=== PATIENT | female | born 1975 | race Caucasian/White ===

== ENCOUNTER 2016-08-03 11:10 | Emergency (ER) | payer OTHER ==
[~2016-08-03] VITALS: Ht 177.8 cm; Wt 104.3 kg
[~2016-08-03 11:10] MED LIST: ASPI81TA2 PO; AZIT250T6 PO; BENZ100C PO; BUPR150T6 PO; CARV3.122 PO; HYDR-971 PO; LEVO500T38 PO; LOSA1TAB17 PO; METF10002 PO; NO MEDICATIONS; PANT20TA2 PO; PHEN-318 PO; PRED20TA PO
[2016-08-03 11:41] LABS: BASO # 0.1 x10^3/uL (0.0-0.2); BASO % 1 % (0-3); EOS # 0.2 x10^3/uL (0.0-0.7); EOS % 2 % (0-3); HEMATOCRIT 41.4 % (36.0-47.0); HEMOGLOBIN 13.7 g/dL (12.0-15.5); LYMPH # 3.2 x10^3/uL (1.0-4.8); LYMPH % 25 % (24-48); MEAN CORPUSCULAR HEMOGLOBIN 28 pg (25-35); MEAN CORPUSCULAR HGB CONC 33 g/dL (31-37); MEAN CORPUSCULAR VOLUME 85 fL (79-100); MONO # 0.9 x10^3/uL (0.0-1.1); MONO % 7 % (0-9); NEUT # 8.5 x10^3uL (1.8-7.7); NEUT % 65 % (31-73); PLATELET COUNT 458 x10^3/uL (140-400); RED BLOOD COUNT 4.86 x10^6/uL (3.50-5.40); RED CELL DISTRIBUTION WIDTH 14.2 % (11.5-14.5)
[2016-08-03] MEDS: IV NORMAL SALINE 1,000ML 1,000 ML IV ONE (11:43)
[2016-08-03] MEDS: FENTANYL PF 250 MCG/5 ML VIAL. IV ONE (11:43)
[2016-08-03] MEDS: ONDANSETRON PF 4 MG/2 ML VIAL. IV ONE (11:43)
[2016-08-03 11:58] LABS: ALBUMIN 3.8 g/dL (3.4-5.0); ALBUMIN/GLOBULIN RATIO 0.9 (1.0-1.7); CALCIUM 9.2 mg/dL (8.5-10.1); GFR 61.1; POTASSIUM 3.8 mmol/L (3.5-5.1); TOTAL BILIRUBIN 0.3 mg/dL (0.2-1.0); TOTAL PROTEIN 8.1 g/dL (6.4-8.2)
[2016-08-03 12:11] LABS: BILIRUBIN,URINE NEG (NEG); CLARITY,URINE HAZY; COLOR,URINE YELLOW; GLUCOSE,URINE NEG (NEG)
[2016-08-03 12:12] LABS: NITRITE,URINE NEG (NEG); UROBILINOGEN,URINE 0.2 mg/dL (0.2 mg/dL)
[2016-08-03] MEDS: MORPHINE SULFATE 4 MG/ML DISP.SYRIN. IV ONE ×2 (12:25→13:28)
[2016-08-03] MEDS: IOHEXOL 300 MG/ML 75 ML VIAL. IV ONE (12:51)
--- NOTE | 2016-08-03 13:02 | RAD ---
EXAM: Abdomen and pelvis CT with intravenous contrast. HISTORY: Pain. TECHNIQUE: Computed tomographic images of the abdomen and pelvis were obtained following the administration of 75 cc of Omnipaque 300 intravenous contrast. Multiplanar reformatting was performed. COMPARISON: 01/17/2014. FINDINGS: Evaluation of the lower thorax demonstrates no infiltrate, effusion or pneumothorax. The heart is normal in size. There is hepatic steatosis and hepatomegaly. The gallbladder is surgically absent. There is common bile duct dilatation likely due to reservoir effect status post cholecystectomy. The pancreas, spleen and adrenal glands are unremarkable. There is left renal cortical scarring. No solid or cystic renal lesion is seen. The appendix is surgically absent. No abnormally thickened or dilated loop of bowel is seen. No pathologically enlarged lymph node is seen. There is a small fat-containing supraumbilical hernia. There is no suspicious osseous lesion. IMPRESSION: 1. No acute abdominal or pelvic finding. 2. Hepatic steatosis and hepatomegaly. 3. Left renal cortical scarring. 4. Small fat-containing subumbilical hernia. PQRS Compliance Statement: One or more of the following individualized dose reduction techniques were utilized for this examination: 1. Automated exposure control 2. Adjustment of the mA and/or kV according to patient size 3. Use of iterative reconstruction technique
[2016-08-03 13:30] VITALS: BP 154/89
--- NOTE | 2016-08-03 15:47 | ED.ADGEN ---
Past History Past Medical History: Diabetes, Hypertension Past Surgical History: Appendectomy, Cholecystectomy, Hysterectomy Alcohol Use: None Drug Use: None Adult General Chief Complaint Chief Complaint Generalized abdominal pain HPI HPI Patient is a 41-year-old female with past surgical history of appendectomy, cholecystectomy and hysterectomy who presents with diffuse generalized abdominal pain since yesterday, worse today. Pain is nonradiating, non- migratory and constant in intensity. Patient also reports constipation with small bowel movement today and urge defecate. Reports decreased gas output. Nausea without vomiting. No fever chills, sweats. No hematuria dysuria or low back pain. No other acute symptoms. Review of Systems Review of Systems Review symptoms as per history of present illness. All other review symptoms are negative. Current Medications Current Medications Current Medications Medications (Trade) Dose Ordered Sig/Jefferson Start Time Stop Time Status Last Admin Dose Admin Fentanyl Citrate (Fentanyl 5ml Vial) 100 mcg 1X ONCE 08/03/16 11:50 08/03/16 11:51 DC 08/03/16 11:43 100 MCG Iohexol (Omnipaque 300 Mg/ml) 75 ml 1X ONCE 08/03/16 12:55 08/03/16 12:56 DC 08/03/16 12:51 75 ML Morphine Sulfate (Morphine 4mg Syringe) 4 mg 1X ONCE 08/03/16 13:30 08/03/16 13:31 DC 08/03/16 13:28 4 MG Ondansetron HCl (Zofran) 4 mg 1X ONCE 08/03/16 11:50 08/03/16 11:51 DC 08/03/16 11:43 4 MG Sodium Chloride (Iv Sodium Chloride 0.9% 1,000ml) 1,000 ml @ 1,000 mls/hr 1X ONCE 08/03/16 11:50 08/03/16 12:49 DC 08/03/16 11:43 1,000 MLS/HR Allergies Allergies Allergies Coded Allergies Type Severity Reaction Last Updated Verified No Known Drug Allergies 08/03/16 No Physical Exam Physical Exam Constitutional: Well developed, well nourished, no acute distress, non-toxic appearance. [] HENT: Normocephalic, atraumatic, bilateral external ears normal, oropharynx moist, no oral exudates, nose normal. [] Eyes: PERRLA, EOMI, conjunctiva normal, no discharge. [] Neck: Normal range of motion, no tenderness, supple, no stridor. [] Cardiovascular:Heart rate regular rhythm, no murmur [] Lungs & Thorax: Bilateral breath sounds clear to auscultation [] Abdomen: Bowel sounds normal, soft, use abdominal pain, no tenderness appreciated. Obesity compromising exam. Skin: Warm, dry, no erythema, no rash. [] Back: No tenderness, no CVA tenderness. [] Extremities: No tenderness, no cyanosis, no clubbing, ROM intact, no edema. [] Neurologic: Alert and oriented X 3, normal motor function, normal sensory function, no focal deficits noted. [] Psychologic: Affect normal, judgement normal, mood normal. [] Current Patient Data Vital Signs Vital Signs Date Time Temp Pulse Resp B/P Pulse Ox O2 Delivery O2 Flow Rate FiO2 08/03/16 13:30 76 18 154/89 98 Room Air 08/03/16 11:10 98.2 Lab Results Laboratory Tests Test 08/03/16 11:26 08/03/16 11:36 White Blood Count 13.0x10^3/uL (4.0-11.0) H Red Blood Count 4.86x10^6/uL (3.50-5.40) Hemoglobin 13.7g/dL (12.0-15.5) Hematocrit 41.4% (36.0-47.0) Mean Corpuscular Volume 85fL (79-100) Mean Corpuscular Hemoglobin 28pg (25-35) Mean Corpuscular Hemoglobin Concent 33g/dL (31-37) Red Cell Distribution Width 14.2% (11.5-14.5) Platelet Count 458x10^3/uL (140-400) H Neutrophils (%) (Auto) 65% (31-73) Lymphocytes (%) (Auto) 25% (24-48) Monocytes (%) (Auto) 7% (0-9) Eosinophils (%) (Auto) 2% (0-3) Basophils (%) (Auto) 1% (0-3) Neutrophils # (Auto) 8.5x10^3uL (1.8-7.7) H Lymphocytes # (Auto) 3.2x10^3/uL (1.0-4.8) Monocytes # (Auto) 0.9x10^3/uL (0.0-1.1) Eosinophils # (Auto) 0.2x10^3/uL (0.0-0.7) Basophils # (Auto) 0.1x10^3/uL (0.0-0.2) Sodium Level 142mmol/L (136-145) Potassium Level 3.8mmol/L (3.5-5.1) Chloride Level 101mmol/L (98-107) Carbon Dioxide Level 33mmol/L (21-32) H Anion Gap 8 (6-14) Blood Urea Nitrogen 14mg/dL (7-20) Creatinine 1.0mg/dL (0.6-1.0) Estimated GFR (Cockcroft-Gault) 61.1 BUN/Creatinine Ratio 14 (6-20) Glucose Level 158mg/dL (70-99) H Calcium Level 9.2mg/dL (8.5-10.1) Total Bilirubin 0.3mg/dL (0.2-1.0) Aspartate Amino Transferase (AST) 15U/L (15-37) Alanine Aminotransferase (ALT) 36U/L (14-59) Alkaline Phosphatase 126U/L (46-116) H Total Protein 8.1g/dL (6.4-8.2) Albumin 3.8g/dL (3.4-5.0) Albumin/Globulin Ratio 0.9 (1.0-1.7) L Lipase 183U/L (73-393) Urine Collection Type Unknown Urine Color Yellow Urine Clarity Hazy Urine pH 6.0 Urine Specific [place] 1.025 Urine Protein Trace (NEG-TRACE) Urine Glucose (UA) Negmg/dL (NEG) Urine Ketones (Stick) Negmg/dL (NEG) Urine Blood Trace (NEG) Urine Nitrite Neg (NEG) Urine Reducing Substances % (NEG) Urine Bilirubin Neg (NEG) Urine Urobilinogen Dipstick 0.2mg/dL (0.2 mg/dL) Urine Leukocyte Esterase Neg (NEG) EKG EKG [] Radiology/Procedures Radiology/Procedures CT abdomen pelvis: No obvious intra-abdominal process per radiology report.[] Impressions: Abdominal pain, etiology unclear. Course & Med Decision Making Course & Med Decision Making Pertinent Labs and Imaging studies reviewed. (See chart for details) [Lab work, CT abdomen pelvis, reassuring. Pain addressed improved while in the emergency department. Etiology unclear. Recommend supportive care, watchful waiting and PCP follow-up. Return precautions reviewed.] Final Impression Final Impression [#1 abdominal pain] Problems: Dragon Disclaimer Tanner Disclaimer This electronic medical record was generated, in whole or in part, using a voice recognition dictation system. FATOU BOYKIN DO Aug 03, 2016 15:47
== END 2016-08-03 13:30 | disposition home or self-care (01) ==
LOC: ER 11:10
DX: R10.84 Generalized abdominal pain (principal); K59.00 Constipation, unspecified; E11.9 Type 2 diabetes mellitus without complications; I10 Essential (primary) hypertension; Z90.49 Acquired absence of other specified parts of digestive tract; Z90.710 Acquired absence of both cervix and uterus
CPT/HCPCS: 36415; 74177; 80053; 81003; 83690; 85027; 96361; 96374; 96375; 96376; 99285; J2270; J2405; J3010; Q9967; J7030

== ENCOUNTER 2017-03-15 16:34 | Inpatient (IN) | payer OTHER ==
[~2017-03-15] VITALS: Ht 175.3 cm; Wt 116.1 kg
[~2017-03-15 16:34] MED LIST changes: +ASPI-630 PO; -ASPI81TA2 PO; +BUPR-192 PO; -BUPR150T6 PO; -LEVO500T38 PO; +LEVO500T59 PO; -LOSA1TAB17 PO; +LOSA1TAB22 PO; -PANT20TA2 PO; +PANT20TA58 PO
[2017-03-15] MEDS ORDERED: NITROGLYCERIN SUBLINGUAL 0.4 MG BOTTLE OF 25. SL PRN ×2 (17:00→19:00)
[2017-03-15] MEDS ORDERED: ASPIRIN 81 MG TAB.CHEW PO ONE (17:15)
--- NOTE | 2017-03-15 17:20 | RAD ---
Portable AP upright view CXR: Clinical indications: Chest pain today.. Comparison: February 27, 2016. Findings: No acute lung infiltrate or pleural effusion or pulmonary edema or lung mass or pneumothorax is seen. The heart size, pulmonary vasculature, mediastinum and both aleja are unremarkable. Impression: No acute radiographic abnormality is seen.
--- NOTE | 2017-03-15 17:21 | EKG ---
[address] [address] Test Date: 2017-03-15 Test Time: 16:56:32 Pat Name: MARIJA GONZALES Department: Room: Gender: F Sole Leveler Machine: : 1975 Requested By: BRETT CLARK Order Number: [id number] Reading MD: Measurements Intervals [place] Rate: 82 P: 15 [place]: 154 QRS: 8 QRSD: 92 T: 26 QT: 378 QTc: 445 Interpretive Statements SINUS RHYTHM NO SPECIFIC ECG ABNORMALITIES RI6.01 No previous ECG available for comparison
[2017-03-15 17:50] LABS: BASO # 0.1 x10^3/uL (0.0-0.2); BASO % 1 % (0-3); EOS # 0.2 x10^3/uL (0.0-0.7); EOS % 2 % (0-3); HEMATOCRIT 38.4 % (36.0-47.0); HEMOGLOBIN 12.9 g/dL (12.0-15.5); LYMPH # 4.3 x10^3/uL (1.0-4.8); LYMPH % 33 % (24-48); MEAN CORPUSCULAR HEMOGLOBIN 29 pg (25-35); MEAN CORPUSCULAR HGB CONC 34 g/dL (31-37); MEAN CORPUSCULAR VOLUME 85 fL (79-100); MONO # 0.8 x10^3/uL (0.0-1.1); MONO % 6 % (0-9); NEUT # 7.5 x10^3uL (1.8-7.7); NEUT % 58 % (31-73); PLATELET COUNT 405 x10^3/uL (140-400); RED BLOOD COUNT 4.53 x10^6/uL (3.50-5.40); RED CELL DISTRIBUTION WIDTH 13.3 % (11.5-14.5)
[2017-03-15 17:59] LABS: ALBUMIN 3.9 g/dL (3.4-5.0); CREATININE 1.1 mg/dL (0.6-1.0); GFR 54.7; POTASSIUM 3.3 mmol/L (3.5-5.1); TOTAL BILIRUBIN 0.3 mg/dL (0.2-1.0)
[2017-03-15 18:57] LABS: BACTERIA,URINE 0 /HPF (0-FEW); BILIRUBIN,URINE NEG (NEG); CLARITY,URINE CLEAR; COLOR,URINE YELLOW; GLUCOSE,URINE NEG (NEG); NITRITE,URINE NEG (NEG); RBC,URINE RARE /HPF (0-2); SQUAMOUS EPITHELIAL CELL,UR MOD /LPF; UROBILINOGEN,URINE 0.2 mg/dL (0.2 mg/dL); WBC,URINE OCC /HPF (0-4)
[2017-03-15] MEDS ORDERED: ONDANSETRON PF 4 MG/2 ML VIAL. IV PRN (19:00)
[2017-03-15] MEDS ORDERED: ACETAMINOPHEN 325 MG TABLET PO PRN (19:00)
--- NOTE | 2017-03-15 19:26 | PHYS DOC ---
General Chief Complaint: Palpitations Stated Complaint: CHEST PALPITATIONS Time Seen by MD: 16:54 Source: patient, old records Exam Limitations: no limitations Problems: History of Present Illness Initial Comments Patient is a 41-year-old female who comes in the ED complaining of chest discomfort and palpitations. Patient's spouse worse in the emergency department patient is well known to the unit. She has prior history of hypertension and hyperlipidemia as well as intermittent anxiety. The patient and her spouse are moving residences, admittedly she's had a great deal more stress recently. Today while unloading boxes approximately one hour prior to ED arrival the patient experienced sudden onset anterior chest tightness with palpitations. Symptoms described as moderate no exacerbating or relieving factors known. No nausea diaphoresis shortness of breath arm or neck symptoms, patient is a daily smoker but denies recent increase in cough fever chills sweats or body aches. On ED arrival symptoms have relieved somewhat, ED vitals: 97.8, 88, 16, 144/90, 97% room air. Patient was admitted to this facility in October 2015 with similar symptoms. At that time she ruled out for acute coronary syndrome and was to follow-up as an outpatient for further testing. Timing/Duration: 1 hour Severity: moderate Modifying Factors: improves with other Associated Symptoms: chest pain, other Allergies: Coded Allergies: No Known Drug Allergies (Unverified , 08/03/16) Past Medical History Medical History: other (hypertension, diabetes, anxiety) Surgical History: appendectomy, cholecystectomy, other Psychosocial History: anxiety Family History Significant Family History: heart disease (patient's mom had an MN at 67 years old) Social History Smoker: cigarettes Alcohol: none Drugs: none Review of Systems Constitutional: denies chills, denies diaphoresis, denies fever, denies malaise Respiratory: denies cough, denies shortness of breath, denies wheezing Cardiovascular: see HPI Gastrointestinal: denies abdominal pain, denies diarrhea, denies nausea, denies vomiting Genitourinary: denies frequency, denies hematuria Musculoskeletal: denies back pain, denies joint swelling, denies neck pain Psychiatric/Neurological: denies headache, denies numbness, denies paresthesia Physical Exam General Appearance: no apparent distress, obese Eyes: bilateral eye normal inspection, bilateral eye PERRL, bilateral eye EOMI Ear, Nose, Throat: hearing grossly normal, normal ENT inspection, normal pharynx Neck: non-tender, supple Respiratory: chest non-tender, no respiratory distress, other (faint wheezes diffusely with good air movement) Cardiovascular: normal peripheral pulses, regular rate, rhythm Gastrointestinal: normal bowel sounds, non tender, soft Back: no CVA tenderness, no vertebral tenderness Extremities: normal range of motion, non-tender (one plus pitting edema bilaterally), no calf tenderness, pelvis stable Neurologic/Psychiatric: chief orthoptist II-XII nml as tested, no motor/sensory deficits, alert, normal mood/affect, oriented x 3 Skin: normal color, warm/dry Orders, Labs, Meds EKG: Normal sinus rhythm 82 bpm, no STEMI changes. Interpreted by Dr. Higginbotham. One view chest: No acute cardiopulmonary process, interpreted by Dr. Higginbotham. Pertinent labs: White blood cells 13, d-dimer 0.27, potassium 3.3, BUN 19, creatinine 1.1 1846: I discussed the patient history presentation and ED findings with Dr. Black educational/development assistant hospitalist. After thoroughly discussing the patient he requests inpatient telemetry admission to follow cardiac enzymes, replace potassium orally in the emergency department, as well as respiratory support with DuoNeb' s. I discussed this with the patient she is agreeable. Impressions: Palpitations, chest pain equivalent Hypokalemia Tobaccoism COPD History of anxiety Departure Disposition: ADMITTED INPATIENT Condition: STABLE Additional Instructions: Dr Black is accepting. BRETT HIGGINBOTHAM DO Mar 15, 2017 19:26
[2017-03-15] MEDS ORDERED: POTASSIUM CHLORIDE 20 MEQ/15 ML ORAL LIQUID. PO ONE (19:45)
[2017-03-15] MEDS: NICOTINE 14MG PATCH. TD SCH (22:22)
[2017-03-15] MEDS: IPRATRPIUM/ALBUTEROL 0.5/2.5MG 3 ML NEBU. NEB SCH (22:22)
[2017-03-15 22:56] VITALS: BP 112/64
[2017-03-15] MEDS ORDERED: SIMV20TA3 PO (23:22)
[2017-03-15] MEDS ORDERED: SERT100T8 PO (23:22)
[2017-03-16] MEDS ORDERED: PNEUMOCOCCAL VAX SCREEN. MC PRN (00:15)
[2017-03-16] MEDS ORDERED: Influenza vaccine per PROTOCOL. MC PRN (00:15)
[2017-03-16 04:11] VITALS: BP 97/67
[2017-03-16 06:55] LABS: BASO # 0.1 x10^3/uL (0.0-0.2); BASO % 1 % (0-3); EOS # 0.3 x10^3/uL (0.0-0.7); EOS % 3 % (0-3); HEMATOCRIT 36.4 % (36.0-47.0); HEMOGLOBIN 12.4 g/dL (12.0-15.5); LYMPH # 2.8 x10^3/uL (1.0-4.8); LYMPH % 30 % (24-48); MEAN CORPUSCULAR HEMOGLOBIN 29 pg (25-35); MEAN CORPUSCULAR HGB CONC 34 g/dL (31-37); MEAN CORPUSCULAR VOLUME 85 fL (79-100); MONO # 0.8 x10^3/uL (0.0-1.1); MONO % 9 % (0-9); NEUT # 5.3 x10^3uL (1.8-7.7); NEUT % 57 % (31-73); PLATELET COUNT 366 x10^3/uL (140-400); RED CELL DISTRIBUTION WIDTH 13.4 % (11.5-14.5); WHITE BLOOD COUNT 9.3 x10^3/uL (4.0-11.0)
[2017-03-16 07:04] LABS: CALCIUM 8.7 mg/dL (8.5-10.1); CREATININE 0.9 mg/dL (0.6-1.0); POTASSIUM 3.8 mmol/L (3.5-5.1)
[2017-03-16] MEDS: IPRATRPIUM/ALBUTEROL 0.5/2.5MG 3 ML NEBU. NEB SCH (08:00)
[2017-03-16] MEDS: NICOTINE 14MG PATCH. TD SCH (08:41)
[2017-03-16 08:45] VITALS: BP 129/78
[2017-03-16] MEDS ORDERED: FLU VACC QS2017-18 (36MOS+)/PF 0.5 ML SYRINGE. VAX IM ONE (09:00)
[2017-03-16] MEDS ORDERED: PNEUMOC CONJ VACC 23-VALENT 0.5 ML VIAL. VAX IM ONE (09:00)
--- NOTE | 2017-03-16 10:46 | PDOC2 ---
DARVIN MADDOX AMM[employer]ITION COMPONENTS INSPECTOR 03/16/17 1046: CONSULT Date of Admission DATE: 03/16/17 TIME: 10:46 Reason for Consult: chest pain, palpitations Problem List Problems Medical Problems: (1) Heart palpitations Status: Acute History of Present Illness Ms Borges is a 41 year old female who presented to the ED yesterday with complaints of chest tightness and palpitations. She has a history of hypertension, hyperlipidemia, diabetes and a normal stress echo in October of last year. She reports that she has been moving and dealing with some increased stress. She was unloading boxes and had sudden on set of irregular heart beat. She denies chest pain or tightness but describes irregular beats that were uncomfortable. She denies any exacerbating or relieving factors. She denies any dyspnea or lightheadedness associated with the palpitations. She does complain of some recent diarrhea and was noted to have a low potassium in the ED. She denies other complaints. Past Medical History hypertension, hyperlipidemia, diabetes Past Surgical History abdominal hysterectomy and bilateral salpingo-oophorectomy, cholecystectomy, and appendectomy. Family History Mother with AR at age 67, and at 74 from lung cancer, Father with hypertension and anemia. 3 sisters, healthy. Social History She is with 4 kids at home, smokes 1 ppd, denies ETOH or recreational drugs. Current Medications Current Medications Aspirin (Children'S Aspirin) 324 mg 1X ONCE PO Last administered on 03/15/17t 17:19; Start 03/15/17 at 17:15; Stop 03/15/17 at 17:16; Status DC Nitroglycerin (Nitrostat) 0.4 mg PRN Q5MIN PRN SL CP RATING > 1/10; Start 03/15 at 17:00; Stop 03/15/17 at 19:35; Status DC Ondansetron HCl (Zofran) 4 mg PRN Q4HRS PRN IV NAUSEA/VOMITING; Start 03/15/17 at 19:00; Stop 03/16/17 at 18:59 Acetaminophen (Tylenol) 650 mg PRN Q4HRS PRN PO FEVER; Start 03/15/17 at 19:00 ; Stop 03/16/17 at 18:59 Nitroglycerin (Nitrostat) 0.4 mg PRN Q5MIN PRN SL CHEST PAIN; Start 03/15/17 at 19:00; Stop 03/16/17 at 18:59 Albuterol/ Ipratropium (Duoneb) 3 ml RTQID NEB ; Start 03/15/17 at 20:00; Stop 03/16/17 at 19:59 Potassium Chloride (KCl Oral Soln) 20 meq 1X ONCE PO Last administered on 03/15 22:22; Start 03/15/17 at 19:45; Stop 03/15/17 at 19:46; Status DC Nicotine (Nicoderm Cq 14mg) 1 patch DAILY TD Last administered on 03/16/17 08: 41; Start 03/15/17 at 21:00 Influenza Virus Vaccine Quadrival (Fluarix Quad [id number] Syringe) 0.5 ml ONCE ONCE VAX IM Last administered on 03/16/17 09:50; Start 03/16/17 at 09:00; Stop 03/16/17 at 09:01; Status DC Pneumococcal Polyvalent Vaccine (Pneumovax 23) 0.5 ml ONCE ONCE VAX IM Last administered on 03/16/17 09:53; Start 03/16/17 at 09:00; Stop 03/16/17 at 09:01 ; Status DC Info (FLU VACCINE per PROTOCOL) 1 ea PRN 1X PRN MC PER PROTOCOL; Start at 00:15; Status Cancel Pneumococcal Polyvalent Vaccine (Do NOT chart on this entry -- for MONITORING) 1 each PRN 1X PRN MC SEE COMMENTS; Start 03/16/17 at 00:15; Status Cancel Active Scripts Active Reported Sertraline Hcl 100 Mg Tablet 100 Mg PO DAILY Simvastatin 20 Mg Tablet 20 Mg PO HS Metformin Hcl 1,000 Mg Tablet 0.5 Tab PO BID LAST DOSE GIVEN: DATE: TIME: NEXT DOSE DUE: DATE: TODAY TIME: WITH DINNER Protonix (Pantoprazole Sodium) 20 Mg Tablet. 1 Tab PO DAILY LAST DOSE GIVEN: DATE: TIME: NEXT DOSE DUE: DATE: RESTART TOMORROW TIME: BEFORE BREAKFAST Allergies: Coded Allergies: No Known Drug Allergies (Unverified , 08/03/16) Review of System as per HPI or negative General: Alert, Oriented X3, Cooperative, No acute distress HEENT: Atraumatic, EOMI Lungs: Clear to auscultation, Normal air movement Heart: Regular rate, Normal S1, Normal S2, Other (no significant murmur, no gallops, no clicks or rubs) Abdomen: Normal bowel sounds Extremities: No cyanosis, Normal pulses Neuro: Normal speech, Strength at 5/5 X4 ext Psych/Mental Status: Mental status NL, Mood NL VITALS Vital Signs Date Time Temp Pulse Resp B/P (MAP) Pulse Ox O2 Delivery O2 Flow Rate FiO2 03/16/17 08:45 97.4 76 16 129/78 (95) 97 Room Air Labs Laboratory Tests Test 03/15/17 17:08 03/15/17 18:10 03/16/17 00:25 03/16/17 05:55 White Blood Count 13.0 x10^3/uL (4.0-11.0) 9.3 x10^3/uL (4.0-11.0) Red Blood Count 4.53 x10^6/uL (3.50-5.40) 4.30 x10^6/uL (3.50-5.40) Hemoglobin 12.9 g/dL (12.0-15.5) 12.4 g/dL (12.0-15.5) Hematocrit 38.4 % (36.0-47.0) 36.4 % (36.0-47.0) Mean Corpuscular Volume 85 fL (79-100) 85 fL (79-100) Mean Corpuscular Hemoglobin 29 pg (25-35) 29 pg (25-35) Mean Corpuscular Hemoglobin Concent 34 g/dL (31-37) 34 g/dL (31-37) Red Cell Distribution Width 13.3 % (11.5-14.5) 13.4 % (11.5-14.5) Platelet Count 405 x10^3/uL (140-400) 366 x10^3/uL (140-400) Neutrophils (%) (Auto) 58 % (31-73) 57 % (31-73) Lymphocytes (%) (Auto) 33 % (24-48) 30 % (24-48) Monocytes (%) (Auto) 6 % (0-9) 9 % (0-9) Eosinophils (%) (Auto) 2 % (0-3) 3 % (0-3) Basophils (%) (Auto) 1 % (0-3) 1 % (0-3) Neutrophils # (Auto) 7.5 x10^3uL (1.8-7.7) 5.3 x10^3uL (1.8-7.7) Lymphocytes # (Auto) 4.3 x10^3/uL (1.0-4.8) 2.8 x10^3/uL (1.0-4.8) Monocytes # (Auto) 0.8 x10^3/uL (0.0-1.1) 0.8 x10^3/uL (0.0-1.1) Eosinophils # (Auto) 0.2 x10^3/uL (0.0-0.7) 0.3 x10^3/uL (0.0-0.7) Basophils # (Auto) 0.1 x10^3/uL (0.0-0.2) 0.1 x10^3/uL (0.0-0.2) D-Dimer (Lauren) 0.27 mg/L (0.00-0.50) Sodium Level 139 mmol/L (136-145) 142 mmol/L (136-145) Potassium Level 3.3 mmol/L (3.5-5.1) 3.8 mmol/L (3.5-5.1) Chloride Level 99 mmol/L (98-107) 104 mmol/L (98-107) Carbon Dioxide Level 30 mmol/L (21-32) 32 mmol/L (21-32) Anion Gap 10 (6-14) 6 (6-14) Blood Urea Nitrogen 19 mg/dL (7-20) 18 mg/dL (7-20) Creatinine 1.1 mg/dL (0.6-1.0) 0.9 mg/dL (0.6-1.0) Estimated GFR (Cockcroft-Gault) 54.7 69.0 BUN/Creatinine Ratio 17 (6-20) Glucose Level 121 mg/dL (70-99) 154 mg/dL (70-99) Calcium Level 9.0 mg/dL (8.5-10.1) 8.7 mg/dL (8.5-10.1) Total Bilirubin 0.3 mg/dL (0.2-1.0) Aspartate Amino Transf (AST/SGOT) 25 U/L (15-37) Alanine Aminotransferase (ALT/SGPT) 43 U/L (14-59) Alkaline Phosphatase 125 U/L (46-116) Creatine Kinase 125 U/L (26-192) Troponin I Quantitative < 0.017 ng/mL (0-0.055) < 0.017 ng/mL (0-0.055) < 0.017 ng/mL (0-0.055) Total Protein 8.0 g/dL (6.4-8.2) Albumin 3.9 g/dL (3.4-5.0) Albumin/Globulin Ratio 1.0 (1.0-1.7) Lipase 216 U/L (73-393) Urine Collection Type Unknown Urine Color Yellow Urine Clarity Clear Urine pH 5.0 Urine Specific [place] 1.015 Urine Protein Neg (NEG-TRACE) Urine Glucose (UA) Neg mg/dL (NEG) Urine Ketones (Stick) Neg mg/dL (NEG) Urine Blood Neg (NEG) Urine Nitrite Neg (NEG) Urine Bilirubin Neg (NEG) Urine Urobilinogen Dipstick 0.2 mg/dL (0.2 mg/dL) Urine Leukocyte Esterase Neg (NEG) Urine RBC Rare /HPF (0-2) Urine WBC Occ /HPF (0-4) Urine Squamous Epithelial Cells Mod /LPF Urine Bacteria 0 /HPF (0-FEW) Urine Mucus Slight /LPF Images EKG - sinus rhythm without acute abnormalities CXR - no acute abnormalities Assessment/Plan 1. chest pain, atypical - CE normal. Normal stress echo in October 2015. 2. palpitations - no arrhythmias documented. Suggest outpatient event monitoring. 3. hypokalemia - likely secondary to diarrhea, replaced and now WNL 4. hypertension - controlled 5. hyperlipidemia - check lipids 6. diabetes mellitus II - per IM 7. anxiety No further CV rec's, will order outpatient Event monitor. Problems: ANH MARIN MD 03/16/17 6285: CONSULT Allergies: Coded Allergies: No Known Drug Allergies (Unverified , 08/03/16) Assessment/Plan Patient seen and examined. Agree with RN REHAB's assessment and plan. Chest pain with atypical features. Myocardial infarction ruled out. Recent stress test did not show any significant ischemia. Telemetry did not show any significant arrhythmia Plan for event monitor as an outpatient to workup palpitations. Thank you for your consultation. Problems: DARVIN MADDOX APRN Mar 16, 2017 10:46 ANH MARIN MD Mar 16, 2017 15:05
[2017-03-16 11:55] VITALS: BP 148/90
[2017-03-16] MEDS ORDERED: SODIUM CHLORIDE 0.65% NASAL SPRAY 45ML BOTTLE. NS PRN (12:00)
--- NOTE | 2017-03-16 12:35 | SSS ---
ADMIT DATE: 03/16/2017 HISTORY OF PRESENT ILLNESS: The patient is a 41-year-old female patient, who came to the Emergency Room complaining of chest discomfort and palpitation. She apparently is known to have hypertension, hyperlipidemia, and type 2 diabetes. She is also a heavy smoker. They are moving residents and she has been under great deal of stress while unloading boxes approximately one hour prior to Emergency arrival. The patient experienced sudden onset of anterior chest tightness and palpitation, described as moderate, no exacerbating or relieving factors. No nausea or vomiting, no diaphoresis or shortness of breath. No arm or neck radiation. She was evaluated in the Emergency Room and her first set of cardiac enzyme was less than 0.017. Her EKG was also unremarkable and was admitted to do two more sets of cardiac enzyme and to consult the cardiology team. PAST MEDICAL HISTORY: Significant for hypertension, hyperlipidemia, type 2 diabetes, gastroesophageal reflux disease. PAST SURGICAL HISTORY: Significant for total abdominal hysterectomy, appendectomy, cholecystectomy, and bilateral oophorectomy. ALLERGIES: She has no known drug allergies. MEDICATIONS: She is currently on following medications: Metformin 500 mg twice a day, Protonix 20 mg once a day, sertraline 100 mg daily, simvastatin 20 mg at bedtime. FAMILY HISTORY: She has 3 sisters, older one has thyroid cancer and one has ovarian cancer. Her father is still alive at age of 79, known to have hypertension. Mother at the age of 77 because of breast cancer, lung cancer, myocardial infarction, and end-stage renal disease. SOCIAL HISTORY: She is , has 3 children. She smokes 1-1/2 pack a day, does not drink alcohol or use recreational drugs. She is a street department dispatcher. REVIEW OF SYSTEMS: Unremarkable. PHYSICAL EXAMINATION: GENERAL: On examining her, she looked well and was clearly in no apparent respiratory distress. She was pale, but no jaundice, cyanosis or thyromegaly. No jugular venous distension. No lower limb edema. VITAL SIGNS: Her heart rate was 76, blood pressure was 129/79, temperature was 97.4, respiratory rate was 16, and oxygen saturation was 97%. HEAD, EYES, EARS, NOSE AND THROAT: Showed normocephalic, atraumatic. NECK: Supple. HEART: Showed normal first and second heart sounds with no gallop, rub or murmur. CHEST: Clear to auscultation. No crepitation or rhonchi. ABDOMEN: Distended, soft, nontender. NEUROLOGIC: She was awake, alert, responding appropriately. Cranial nerves intact. She moves extremities without difficulty. She ambulates without assistance or assistive devices. She has 3 sets of cardiac enzymes all were negative with troponin less than 0.017. She was evaluated by the cardiology team and recommended doing an echocardiogram. I will arrange for her to have an event monitor as an outpatient. LABORATORY DATA: When I saw her this afternoon, her other lab work showed a white cell count of 9300, hemoglobin 12, hematocrit 36, MCV 85 and platelet count 366,000. Her chemistry showed a serum sodium 142, potassium 3.6, chloride 104, bicarbonate 32, anion gap of 6, BUN 18, creatinine 0.9, estimated GFR was 69 mL per minute. Her glucose 154 and calcium was 8.7. Her D-dimer was low at 0.27. Urinalysis was unremarkable. Her chest x-ray also showed no acute radiographic abnormalities seen. FINAL DISCHARGE DIAGNOSES: Chest pain, myocardial infarction ruled out, palpitation. ASSESSMENT AND PLAN: The patient will be monitored with Holter monitor, event monitor, hypertension, hyperlipidemia, type 2 diabetes, gastroesophageal reflux disease. SHREYAS YOUSSEF MD DR: ANGEL/jesus JOB#: [id number] / [id number]
== END 2017-03-16 12:30 | disposition home or self-care (01) | DRG 313 ==
LOC: ER 16:34 → ICU 19:24
PROVIDERS: ADMIT Internal Medicine; ATTEND Internal Medicine
DX: R07.89 Other chest pain (principal); E11.9 Type 2 diabetes mellitus without complications; E78.5 Hyperlipidemia, unspecified; E87.6 Hypokalemia; F17.210 Nicotine dependence, cigarettes, uncomplicated; F41.9 Anxiety disorder, unspecified; I10 Essential (primary) hypertension; I49.9 Cardiac arrhythmia, unspecified; K21.9 Gastro-esophageal reflux disease without esophagitis; Z80.1 Family history of malignant neoplasm of trachea, bronchus and lung; Z80.41 Family history of malignant neoplasm of ovary; Z80.3 Family history of malignant neoplasm of breast; Z80.8 Family history of malignant neoplasm of other organs or systems; Z82.49 Family history of ischemic heart disease and other diseases of the circulatory system; Z90.710 Acquired absence of both cervix and uterus
CPT/HCPCS: 36415; 71010; 80048; 80053; 81001; 82550; 83690; 84484; 85025; 85379; 87641; 90686; 90732; 93005; 99285-25

== ENCOUNTER 2018-07-28 19:47 | Observation (INO) | payer OTHER ==
[~2018-07-28] VITALS: Ht 172.7 cm; Wt 116.8 kg
[~2018-07-28 19:47] MED LIST changes: -CARV3.122 PO; +CARV3.1230 PO; +HYDR-3165 PO; -HYDR-971 PO; -METF10002 PO; +METF10007 PO; +SERT100T8 PO; +SIMV20TA3 PO
--- NOTE | 2018-07-28 20:04 | EKG ---
[address] [address] Test Date: 2018-07-28 Test Time: 20:00:58 Pat Name: MARIJA GONZALES Department: Room: Gender: F Mine Wedge Sawyer: BETSY : 1975 Requested By: COLBY BERNAL Order Number: [id number] Reading MD: Cameron Ham MD Measurements Intervals [place] Rate: 94 P: 15 [place]: 140 QRS: 25 QRSD: 90 T: 47 QT: 360 QTc: 456 Interpretive Statements SINUS RHYTHM Electronically Signed On 07-29-2018 17:30:02 CDT by Cameron Ham MD
[2018-07-28 20:48] LABS: BASO # 0.1 x10^3/uL (0.0-0.2); BASO % 1 % (0-3); EOS # 0.2 x10^3/uL (0.0-0.7); EOS % 2 % (0-3); HEMATOCRIT 39.1 % (36.0-47.0); HEMOGLOBIN 13.2 g/dL (12.0-15.5); LYMPH # 3.8 x10^3/uL (1.0-4.8); LYMPH % 28 % (24-48); MEAN CORPUSCULAR HEMOGLOBIN 28 pg (25-35); MEAN CORPUSCULAR HGB CONC 34 g/dL (31-37); MEAN CORPUSCULAR VOLUME 83 fL (79-100); MONO # 0.8 x10^3/uL (0.0-1.1); MONO % 6 % (0-9); NEUT # 8.7 x10^3uL (1.8-7.7); NEUT % 64 % (31-73); PLATELET COUNT 494 x10^3/uL (140-400); RED BLOOD COUNT 4.71 x10^6/uL (3.50-5.40); RED CELL DISTRIBUTION WIDTH 14.6 % (11.5-14.5); WHITE BLOOD COUNT 13.7 x10^3/uL (4.0-11.0)
[2018-07-28 20:58] LABS: CREATININE 1.3 mg/dL (0.6-1.0); GFR 44.7; POTASSIUM 3.5 mmol/L (3.5-5.1)
--- NOTE | 2018-07-28 21:10 | ED.ADGEN ---
Past History Past Medical History: Anxiety, Diabetes, GERD, Hypertension Past Surgical History: Appendectomy, Cholecystectomy, Hysterectomy Alcohol Use: None Drug Use: None Adult General Chief Complaint Chief Complaint cp HPI HPI Old female 43 years old female presented to the emergency department with chest pain described as pressure on the left side of her chest radiated to her back associated with the shortness breath patient has risk factors including #1 obesity number to smoking #3 lack of exercise #4 diabetes n 5 hypertension . Pains been going on since yesterday last for about 15-20 minutes at the time rated 7 out of 10 She mentioned she had stress test done 3 years ago Review of Systems Review of Systems Constitutional: Denies fever or chills [] Eyes: Denies change in visual acuity, redness, or eye pain [] HENT: Denies nasal congestion or sore throat [] Respiratory: Denies cough or shortness of breath [] Cardiovascular: No additional information not addressed in HPI [] GI: Denies abdominal pain, nausea, vomiting, bloody stools or diarrhea [] : Denies dysuria or hematuria [] \ Allergies Allergies Allergies Coded Allergies Type Severity Reaction Last Updated Verified No Known Drug Allergies 08/03/16 No Physical Exam Physical Exam Constitutional: Well developed, well nourished, no acute distress, non-toxic appearance. [] HENT: Normocephalic, atraumatic, bilateral external ears normal, oropharynx moist, no oral exudates, nose normal. [] Eyes: PERRLA, EOMI, conjunctiva normal, no discharge. [] Neck: Normal range of motion, no tenderness, supple, no stridor. [] Cardiovascular:Heart rate regular rhythm, no murmur [] Lungs & Thorax: Bilateral breath sounds clear to auscultation [] Abdomen: Bowel sounds normal, soft, no tenderness, no masses, no pulsatile masses. [] Skin: Warm, dry, no erythema, no rash. [] Back: No tenderness, no CVA tenderness. [] Extremities: No tenderness, no cyanosis, no clubbing, ROM intact, no edema. [] Neurologic: Alert and oriented X 3, normal motor function, normal sensory function, no focal deficits noted. [] Psychologic: Affect normal, judgement normal, mood normal. [] Current Patient Data Lab Results Laboratory Tests Test 07/28/18 20:09 White Blood Count 13.7 x10^3/uL (4.0-11.0) H Red Blood Count 4.71 x10^6/uL (3.50-5.40) Hemoglobin 13.2 g/dL (12.0-15.5) Hematocrit 39.1 % (36.0-47.0) Mean Corpuscular Volume 83 fL (79-100) Mean Corpuscular Hemoglobin 28 pg (25-35) Mean Corpuscular Hemoglobin Concent 34 g/dL (31-37) Red Cell Distribution Width 14.6 % (11.5-14.5) H Platelet Count 494 x10^3/uL (140-400) H Neutrophils (%) (Auto) 64 % (31-73) Lymphocytes (%) (Auto) 28 % (24-48) Monocytes (%) (Auto) 6 % (0-9) Eosinophils (%) (Auto) 2 % (0-3) Basophils (%) (Auto) 1 % (0-3) Neutrophils # (Auto) 8.7 x10^3uL (1.8-7.7) H Lymphocytes # (Auto) 3.8 x10^3/uL (1.0-4.8) Monocytes # (Auto) 0.8 x10^3/uL (0.0-1.1) Eosinophils # (Auto) 0.2 x10^3/uL (0.0-0.7) Basophils # (Auto) 0.1 x10^3/uL (0.0-0.2) D-Dimer (Lauren) 0.29 mg/L (0.00-0.50) Sodium Level 141 mmol/L (136-145) Potassium Level 3.5 mmol/L (3.5-5.1) Chloride Level 97 mmol/L (98-107) L Carbon Dioxide Level 30 mmol/L (21-32) Anion Gap 14 (6-14) Blood Urea Nitrogen 20 mg/dL (7-20) Creatinine 1.3 mg/dL (0.6-1.0) H Estimated GFR (Cockcroft-Gault) 44.7 Glucose Level 214 mg/dL (70-99) H Calcium Level 9.0 mg/dL (8.5-10.1) Troponin I Quantitative < 0.017 ng/mL (0-0.055) EKG EKG [] Radiology/Procedures Radiology/Procedures [] Course & Med Decision Making Course & Med Decision Making Patient to be admitted to the hospital to rule out acute carotid syndrome [] Final Impression Final Impression [] Problems: (1) Chest pain Qualifiers: Qualified Codes: R07.9 - Chest pain, unspecified Dragon Disclaimer Dragon Disclaimer This electronic medical record was generated, in whole or in part, using a voice recognition dictation system. COLBY BERNAL MD Jul 28, 2018 21:10
[2018-07-28] MEDS ORDERED: ASPIRIN 325 MG TABLET PO ONE (21:15)
[2018-07-28] MEDS ORDERED: ZOLPIDEM 5 MG TABLET. PO PRN (22:15)
[2018-07-29 00:08] VITALS: BP 131/86
[2018-07-29 01:20] LABS: BILIRUBIN,URINE NEG (NEG); CLARITY,URINE CLEAR; COLOR,URINE YELLOW; GLUCOSE,URINE NEG (NEG)
[2018-07-29 01:21] LABS: BACTERIA,URINE MOD /HPF (0-FEW); HYALINE CASTS, URINE OCC /HPF; NITRITE,URINE NEG (NEG); RBC,URINE 0 /HPF (0-2); SQUAMOUS EPITHELIAL CELL,UR MOD /LPF; UROBILINOGEN,URINE 0.2 mg/dL (0.2 mg/dL)
[2018-07-29] MEDS ORDERED: VARE1TAB21 PO (04:20)
[2018-07-29 05:54] VITALS: BP 145/88
[2018-07-29] MEDS ORDERED: PANTOPRAZOLE 40 MG TABLET. PO SCH (07:30)
[2018-07-29] MEDS ORDERED: metFORMIN 500 MG TABLET PO SCH (08:00)
--- NOTE | 2018-07-29 08:18 | RAD ---
PROCEDURE: PORTABLE CHEST 1V CLINICAL INDICATION: Chest pain COMPARISON: 03/15/2017 FINDINGS: No pneumothorax identified. Cardiac and mediastinal contours unremarkable. No pulmonary consolidation or acute airspace disease. No acute osseous abnormalities identified. IMPRESSION: No pulmonary consolidation or acute airspace disease. Electronically signed by: Corey Wilson DO (07/29/2018 8:15 AM) [facility]
[2018-07-29] MEDS ORDERED: VARENICLINE 0.5 MG TABLET. PO SCH (09:00)
[2018-07-29] MEDS ORDERED: SERTRALINE 100 MG TABLET. PO SCH (09:00)
[2018-07-29 10:23] VITALS: BP 128/80
[2018-07-29 14:36] VITALS: BP 123/80
--- NOTE | 2018-07-29 14:59 | PDOC2 ---
CONSULT Date of Admission DATE: 07/29/18 TIME: 829 Reason for Consult: cp Problem List Problems Medical Problems: (1) Chest pain Status: Acute History of Present Illness Ms Borges is a 43 year old female who presents with complaints of chest pain. She complains of several days of tightness in her chest, dry hacking cough and fever/ chills. Discomfort has been constant since onset. She reports her son currently being treated for bronchial pneumonia. She denies congestive symptoms , swelling, palpitations, lightheadedness or syncope. She reports increased fatigue recently associated with onset of other symptoms but otherwise no change in functional status. Past Medical History hypertension, hyperlipidemia, diabetes, normal stress echo in mid 2015 Past Surgical History abdominal hysterectomy and bilateral salpingo-oophorectomy, cholecystectomy, and appendectomy. Family History Mother with OK at age 67, and at 74 from lung cancer, Father with hypertension and anemia. 3 sisters, healthy. Social History She is with 4 kids at home, smokes 1 ppd, denies ETOH or recreational drugs. Current Medications Current Medications Aspirin (Breanna Aspirin) 325 mg 1X ONCE PO Last administered on 07/28/18at 21:59 ; Start 07/28/18 at 21:15; Stop 07/28/18 at 21:19; Status DC Zolpidem Tartrate (Ambien) 10 mg PRN QHS PRN PO INSOMNIA Last administered on at 23:56; Start 07/28/18 at 22:15 Sertraline HCl (Zoloft) 100 mg DAILY PO Last administered on 07/29/18at 08:04; Start 07/29/18 at 09:00 Varenicline (Chantix) 1 mg BID PO Last administered on 07/29/18at 11:31; Start 07/29/18 at 09:00 Metformin HCl (Glucophage) 500 mg BIDWMEALS PO Last administered on 07/29/18at 08:04; Start 07/29/18 at 08:00 Pantoprazole Sodium (Protonix) 20 mg DAILYAC PO Last administered on 07/29/18at 08:04; Start 07/29/18 at 07:30 Simvastatin (Zocor) 20 mg HS PO ; Start 07/29/18 at 21:00 Active Scripts Active Reported Chantix (Varenicline Tartrate) 1 Mg Tablet 1 Mg PO BID LAST DOSE GIVEN: DATE: TIME: AM NEXT DOSE DUE: DATE: TODAY TIME: PM Sertraline Hcl 100 Mg Tablet 100 Mg PO DAILY LAST DOSE GIVEN: DATE: TIME: AM NEXT DOSE DUE: DATE: TOMORROW TIME: AM Simvastatin 20 Mg Tablet 20 Mg PO HS NEXT DOSE DUE: DATE: TIME: AT BEDTIME Metformin Hcl 1,000 Mg Tablet 0.5 Tab PO BID LAST DOSE GIVEN: DATE: TIME: WITH BREAKFAST NEXT DOSE DUE: DATE: TODAY TIME: WITH DINNER Protonix (Pantoprazole Sodium) 20 Mg Tablet.dr 1 Tab PO DAILY LAST DOSE GIVEN: DATE: TIME: AM NEXT DOSE DUE: DATE: TOMORROW TIME: BEFORE BREAKFAST Allergies: Coded Allergies: No Known Drug Allergies (Unverified , 08/03/16) Review of System as per HPI or negative General: Alert, Oriented X3, Cooperative, No acute distress HEENT: Atraumatic, Mucous membr. moist/pink Lungs: Other (clear without wheezes, crackles or rhonchi) Heart: Normal S1, Normal S2, Other (no gallops, clicks or rubs) Extremities: No cyanosis, Normal pulses, Other (trace edema) Neuro: Normal speech, Strength at 5/5 X4 ext Psych/Mental Status: Mental status NL, Mood NL VITALS Vital Signs Date Time Temp Pulse Resp B/P (MAP) Pulse Ox O2 Delivery O2 Flow Rate FiO2 07/29/18 10:23 97.8 83 20 128/80 (96) 96 Room Air Labs Laboratory Tests Test 07/28/18 20:09 07/29/18 00:05 07/29/18 01:45 07/29/18 07:40 White Blood Count 13.7 x10^3/uL (4.0-11.0) Red Blood Count 4.71 x10^6/uL (3.50-5.40) Hemoglobin 13.2 g/dL (12.0-15.5) Hematocrit 39.1 % (36.0-47.0) Mean Corpuscular Volume 83 fL (79-100) Mean Corpuscular Hemoglobin 28 pg (25-35) Mean Corpuscular Hemoglobin Concent 34 g/dL (31-37) Red Cell Distribution Width 14.6 % (11.5-14.5) Platelet Count 494 x10^3/uL (140-400) Neutrophils (%) (Auto) 64 % (31-73) Lymphocytes (%) (Auto) 28 % (24-48) Monocytes (%) (Auto) 6 % (0-9) Eosinophils (%) (Auto) 2 % (0-3) Basophils (%) (Auto) 1 % (0-3) Neutrophils # (Auto) 8.7 x10^3uL (1.8-7.7) Lymphocytes # (Auto) 3.8 x10^3/uL (1.0-4.8) Monocytes # (Auto) 0.8 x10^3/uL (0.0-1.1) Eosinophils # (Auto) 0.2 x10^3/uL (0.0-0.7) Basophils # (Auto) 0.1 x10^3/uL (0.0-0.2) D-Dimer (Lauren) 0.29 mg/L (0.00-0.50) Sodium Level 141 mmol/L (136-145) Potassium Level 3.5 mmol/L (3.5-5.1) Chloride Level 97 mmol/L (98-107) Carbon Dioxide Level 30 mmol/L (21-32) Anion Gap 14 (6-14) Blood Urea Nitrogen 20 mg/dL (7-20) Creatinine 1.3 mg/dL (0.6-1.0) Estimated GFR (Cockcroft-Gault) 44.7 Glucose Level 214 mg/dL (70-99) Calcium Level 9.0 mg/dL (8.5-10.1) Troponin I Quantitative < 0.017 ng/mL (0-0.055) < 0.017 ng/mL (0-0.055) Urine Collection Type Unknown Urine Color Yellow Urine Clarity Clear Urine pH 5.5 Urine Specific [place] 1.020 Urine Protein Trace (NEG-TRACE) Urine Glucose (UA) Neg mg/dL (NEG) Urine Ketones (Stick) Trace mg/dL (NEG) Urine Blood Neg (NEG) Urine Nitrite Neg (NEG) Urine Bilirubin Neg (NEG) Urine Urobilinogen Dipstick 0.2 mg/dL (0.2 mg/dL) Urine Leukocyte Esterase Neg (NEG) Urine RBC 0 /HPF (0-2) Urine WBC 1-4 /HPF (0-4) Urine Squamous Epithelial Cells Mod /LPF Urine Bacteria Mod /HPF (0-FEW) Urine Hyaline Casts Occ /HPF Glucose (Fingerstick) 150 mg/dL (70-99) Test 07/29/18 08:05 07/29/18 11:24 Troponin I Quantitative < 0.017 ng/mL (0-0.055) Glucose (Fingerstick) 147 mg/dL (70-99) Images EKG - no acute ischemic changes CXR - no acute distress Assessment/Plan 1. chest pain atypical, OK ruled out. 2. acute bronchitis - mgmt per PCP 3. hypertension - resume home meds 4. hyperlipidemia - checlk lipids and continue statin check echo, check lipids, aspirin and no beta alok due to intermittent wheezing. will plan for outpatient MPI. DARVIN MADDOX LEATHER TACKER Jul 29, 2018 14:59
[2018-07-29] MEDS ORDERED: GUAI600T47 PO (16:51)
[2018-07-29] MEDS ORDERED: PRED20TA PO (16:51)
[2018-07-29] MEDS ORDERED: ALBU2.5V8 INH (16:51)
[2018-07-29] MEDS ORDERED: AZIT500T2 PO (16:51)
--- NOTE | 2018-07-29 17:21 | SSS ---
ADMIT DATE: 07/28/2018 HISTORY OF PRESENT ILLNESS: The patient is a 43-year-old female patient who came to the Emergency Room with complaint of chest pain that has been ongoing for the last several days, described it as tightness in her chest, dry hacking cough with fever and chills. Discomfort has been constant since onset. She reports her son currently being treated for bronchial pneumonia. She denied any congestive symptoms, swelling, palpitation, lightheadedness or syncope. Did complain of increased fatigue recently with onset of other symptoms, but otherwise no change in functional status. She was evaluated in the Emergency Room and her lab work showed her white cell count to be 13,700. Her chemistry showed that her first set of cardiac enzyme was less than 0.017. Her chest x-ray was unremarkable and she was admitted. Apparently, has had 3 sets of cardiac enzymes that ruled out myocardial infarction and the plan was to discharge the patient. PAST MEDICAL HISTORY: Significant for hypertension, hyperlipidemia, type 2 diabetes. She apparently had had a normal stress echo done in 2016. PAST SURGICAL HISTORY: Significant for abdominal hysterectomy with bilateral salpingo-oophorectomy, cholecystectomy and appendectomy. FAMILY HISTORY: Mother has myocardial infarction at age of 67 and was disease at 74 from lung cancer. Father has hypertension and anemia. She has 2 sisters healthy. She is . She has 4 kids at home. SOCIAL HISTORY: Smokes 1 pack per day, trying to quit. Denied any alcohol or recreational drugs. REVIEW OF SYSTEMS: As per in the history of present illness. ALLERGIES: She has no known drug allergies. MEDICATIONS: She is currently on following medications: She is on Chantix 1 mg p.o. b.i.d., simvastatin 20 mg at bedtime, sertraline 100 mg daily, Protonix 20 mg daily, metformin 500 mg twice a day. PHYSICAL EXAMINATION: GENERAL: On arrival to the Emergency Room, the patient looked well and was clearly in no apparent respiratory distress. No pallor, jaundice, cyanosis, or thyromegaly. No jugular venous distension. No limb edema. VITAL SIGNS: Her heart rate was 20, blood pressure 165/81, temperature was 98.4, respiratory rate 20, and oxygen saturation was 99%. HEAD, EYES, EARS, NOSE AND THROAT: Showed normocephalic, atraumatic. NECK: Supple. HEART: Showed normal first and second heart sounds. No gallop or murmur. CHEST: Clear to auscultation. No crepitation or rhonchi. ABDOMEN: Distended, soft, nontender. NEUROLOGIC: She is awake, alert, responding appropriately. All cranial nerves are intact. EXTREMITIES: She moves extremities without difficulty. LABORATORY DATA: Showed a serum sodium 141, potassium 3.5, chloride 97, bicarbonate 30, anion gap of 14, BUN 20, creatinine 1.3, estimated GFR was 44. Her glucose was 214, calcium was 9. Her white cell count was 13,700, hemoglobin 13, hematocrit 39, MCV 83, and platelet count of 494,000. D-dimer was 0.29. Urinalysis was essentially unremarkable. She has 3 sets of cardiac enzymes, all of them showed troponin to be less than 0.017. She has had an echocardiogram done, the results of which are still pending. The equipment processer storage recommended that she can be discharged home to arrange for outpatient nuclear stress test. FINAL DISCHARGE DIAGNOSES: 1. Chest pain, atypical, myocardial infarction ruled out, acute bronchitis for which we started her on albuterol inhaler, tapering course of steroids, Z-DON and Mucinex. 2. Hypertension. Continue current antihypertensive medication. 3. Hyperlipidemia. Continue with the atorvastatin. 4. Type 2 diabetes for which she is on metformin. SHREYAS YOUSSEF MD DR: ANGEL/jesus JOB#: [id number] / [id number]
[2018-07-29] MEDS ORDERED: SIMVASTATIN 20 MG TABLET PO SCH (21:00)
== END 2018-07-29 17:15 | disposition home or self-care (01) ==
LOC: ER 19:47 → UNDOADMIN 21:22 → 1 SOUTH 21:22 → INTOOBSV 21:22 → ER 23:11
PROVIDERS: ADMIT Internal Medicine; ATTEND Internal Medicine
DX: R07.89 Other chest pain (principal); I10 Essential (primary) hypertension; E78.5 Hyperlipidemia, unspecified; Z90.710 Acquired absence of both cervix and uterus; Z82.49 Family history of ischemic heart disease and other diseases of the circulatory system; Z80.1 Family history of malignant neoplasm of trachea, bronchus and lung; F17.210 Nicotine dependence, cigarettes, uncomplicated; J20.9 Acute bronchitis, unspecified; E11.9 Type 2 diabetes mellitus without complications
CPT/HCPCS: 36415; 71045; 80048; 81001; 82947; 84484; 85025; 85379; 87086; 93005; 99284; G0378; G0379